=== PATIENT | male | born 1990 ===

== ENCOUNTER 2017-11-20 02:32 | Emergency (ER) | payer OTHER ==
[~2017-11-20] VITALS: Ht 172.7 cm; Wt 77.0 kg
[2017-11-20 03:51] VITALS: BP 174/95
== END 2017-11-20 03:52 ==
LOC: ER 02:33
DX: Z02.89 Encounter for other administrative examinations (principal); F10.129 Alcohol abuse with intoxication, unspecified; V89.2XXA Person injured in unspecified motor-vehicle accident, traffic, initial encounter; Y93.89 Activity, other specified; Y92.488 Other paved roadways as the place of occurrence of the external cause; Y99.8 Other external cause status
CPT/HCPCS: 93005; 99283